=== PATIENT | male | born 1960 | race Caucasian/White ===

== ENCOUNTER 2017-01-02 21:07 | Inpatient (IN) | payer OTHER ==
[~2017-01-02] VITALS: Ht 172.7 cm; Wt 73.9 kg
--- NOTE | 2017-01-02 22:33 | ERA ---
ER Documentation Chief Complaint Date/Time DATE: 01/02/17 TIME: 22:33 Chief Complaint diffuse abd pain x 1 day, w/ vomiting HPI The patient is a 56-year-old male, presenting to the ER because of diffuse abdominal pain, associated with vomiting 2 initially foot then mucus and constipation. The pain is 9/10, worse with vomiting and constipation. He denies fever, chills, neck pain, dysuria, diarrhea. He does not smoke, drinks socially Past medical/surgical history: None ROS All systems reviewed and are negative except as per history of present illness. Medications Home Meds No Active Prescriptions or Reported Meds Allergies Allergies: Coded Allergies: Sulfa (Sulfonamide Antibiotics) (Verified Allergy, Unknown, 01/02/17) Physical Exam Vitals Vital Signs Date Time Temp Pulse Resp B/P Pulse Ox O2 Delivery O2 Flow Rate FiO2 01/02/17 21:15 98.3 90 20 117/77 100 Physical Exam Const: No acute distress. Head: Atraumatic. Eyes: Normal Conjunctiva. ENT: Normal External Ears, Nose and Mouth. Neck: Full range of motion. No meningismus. Resp: Clear to auscultation bilaterally. Cardio: Regular rate and rhythm, no murmurs. Abd: Soft, non distended, normal bowel sounds, diffuse abdominal tenderness, no rigidity, rebound, CVA tenderness Skin: No petechiae or rashes. Back: No midline or flank tenderness. Ext: No cyanosis, or edema. Neur: Awake and alert. No focal deficit Psych: Normal Mood and Affect. Result Diagram: 01/02/178 01/02/178 Results 24 hrs Laboratory Tests Test 01/02/17 22:48 01/02/17 23:01 Alanine Aminotransferase (ALT/SGPT) 39IU/L Albumin 4.7g/dl Albumin/Globulin Ratio 1.30 Alkaline Phosphatase 103IU/L Anion Gap 17 Aspartate Amino Transf (AST/SGOT) 23IU/L Basophils # 0.010^3/ul Basophils % 0.3% Blood Urea Nitrogen 17mg/dl Calcium Level 10.4mg/dl Carbon Dioxide Level 30mmol/L Chloride Level 98mmol/L Creatinine 0.85mg/dl Direct Bilirubin 0.00mg/dl Eosinophils # 0.110^3/ul Eosinophils % 0.6% Globulin 3.60g/dl Glucose Level 127mg/dl Hematocrit 46.5% Hemoglobin 15.6g/dl Indirect Bilirubin 0.9mg/dl Lipase 81U/L Lymphocytes # 1.410^3/ul Lymphocytes % 11.7% Mean Corpuscular Hemoglobin 30.3pg Mean Corpuscular Hemoglobin Concent 33.5g/dl Mean Corpuscular Volume 90.3fl Mean Platelet Volume 10.6fl Monocytes # 0.710^3/ul Monocytes % 5.8% Neutrophils # 9.510^3/ul Neutrophils % 81.3% Nucleated Red Blood Cells # 0.010^3/ul Nucleated Red Blood Cells % 0.0/100WBC Platelet Count 99124^3/UL Potassium Level 4.4mmol/L Red Blood Count 5.1510^6/ul Red Cell Distribution Width 12.1% Sodium Level 141mmol/L Total Bilirubin 0.9mg/dl Total Protein 8.3g/dl White Blood Count 11.610^3/ul Bedside Urine Blood Trace-lysed Bedside Urine Glucose (UA) Negative Bedside Urine Ketones (LAB) Trace Bedside Urine Leukocyte Esterase (L Negative Bedside Urine Nitrite (LAB) Negative Bedside Urine Protein (LAB) 1+ Bedside Urine pH (LAB) 5.5 Current Medications Medications (Trade) Dose Ordered Sig/[place] Route PRN Reason Start Time Stop Time Status Last Admin Dose Admin Sodium Chloride (NS) 1,000 ml @ 1,000 mls/hr Q1H STAT IV 01/02/17 22:38 01/02/17 23:37 DC 01/02/17 23:05 Morphine Sulfate (morphine) 4 mg ONCE STAT IV 01/02/17 22:38 01/02/17 22:40 DC 01/02/17 23:05 Ondansetron HCl 4 mg 4 mg ONCE STAT IV 01/02/17 22:38 01/02/17 22:40 DC 01/02/17 23:05 Piperacillin Sod/ Tazobactam Sod (Zosyn 3.375gm/ 100 ml (Pmx)) 100 ml @ 200 mls/hr ONCE ONCE IVPB 01/03/17 00:30 01/03/17 00:59 Procedures/MDM [place] [id number] Radiology Main Line: [phone] DIAGNOSTIC IMAGING REPORT Patient: JOIE TATUM : 1960 Age: 56 Sex: M MR #: [id number] [facility] #: [id number] DOS: 01/02/17 2238 Ordering MD: NIRALI LEES MD Location: E/R Room/Bed: PROCEDURE: CT abdomen and pelvis without contrast. CLINICAL INDICATION: Abdominal pain TECHNIQUE: CT scan of the abdomen and pelvis without contrast was performed. Sagittal and coronal reformatted images were obtained from the axial source images. CTDI = 9.43 mGy; DLP = 594.16 mGy-cm COMPARISON: None. FINDINGS: Visualized lower thorax: Minimal left lower lobe subsegmental atelectasis or scarring with small pleural thickening. The right lung base is clear. There is no evidence for pleural effusion. Liver, gallbladder, pancreas and spleen: The liver is normal and size, contour and attenuation. There is no evidence for a liver mass or ductal dilatation. The gallbladder is unremarkable. No common bile duct abnormality is demonstrated. The pancreas is unremarkable. The spleen is normal in size. Adrenal glands and genitourinary system: The adrenal glands are normal bilaterally. The right kidney is normal in size and contour. The left kidney has an approximate 4 mm nonobstructing interpolar calculus without hydronephrosis. Multiple left renal cysts, cortical and parapelvic are present the largest is in the upper pole measuring 4.3 cm. The ureters are unremarkable. No urinary bladder abnormality is demonstrated. The prostate gland is normal in size. The scrotum shows no abnormality. Gastrointestinal system: The stomach is distended without wall thickening. There is distension with gas/fluid levels of the duodenum and jejunum with small bowel fecal material in the jejunum and some haziness of the small bowel mesenteric fat. The ileum is collapsed, the small bowel obstruction pattern possibly related to an internal hernia as there is no evidence of previous abdominal surgery. The appendix and surrounding fat are within the limits of normal. The colon shows no evidence for wall thickening or acute abnormality. There is no evidence for colitis or diverticulitis. Peritoneum, retroperitoneum, lymph nodes and vessels: The abdominal aorta is normal in caliber. There is no evidence for atherosclerotic calcification. The inferior vena cava is unremarkable. There is no evidence for adenopathy or mass. A small amount of free fluid within the dependent pelvis is present. There is no upper abdominal ascites or pneumoperitoneum. Osseous structures and musculoskeletal findings: There is no fracture, lytic or blastic lesion. No muscular abnormality or soft tissue pathology is present. RPTAT:HJJR IMPRESSION: 1. Mid small bowel obstruction pattern with gastric, duodenal and jejunal distension and collapse of the ileum, findings consistent with small bowel obstruction due to an internal hernia as there are no changes of prior abdominal surgery. 2. Small amount of free fluid within the pelvis. 3. Incidental left renal calculus and left renal cysts. 4. Critical results regarding the small bowel obstruction are discussed by telephone with emergency room physician Dr. Lees at 12:19. Noah Tse Physician Date Time Electronically viewed and signed by Noah Tse Physician on 01/03/2017 00:20 JR/ CC: NIRALI LEES MD MEDICAL MAKING DECISION: The patient is a 56-year-old male, presenting with acute small bowel obstruction. he was treated with 2 L normal saline, morphine 4 mg IV for pain, Zofran 4 mg IV for nausea, nasogastric tube, Zosyn IV with good response.. The differential diagnoses considered include but are not limited to mesenteric hernia, cholelithiasis, cholecystitis, cystitis, pancreatitis, hepatitis, gastritis, peptic ulcer disease, gastric ulcer, appendicitis, diverticulitis, cholangitis, choledocholithiasis, partial small bowel obstruction, GI malignancy. Departure Diagnosis: Primary Impression: Abdominal pain Condition: Stable Comments Consultation: I discussed the patient with the on-call general surgeon Dr. Valle , who was made aware of the lab, the treatment, the patient condition. He accepted the consult at 12:35 AM I discussed the findings with the patient. I discussed the patient with the on- call hospitalist Dr. Vasquez who was made aware of the lab, the treatment, the patient condition and my discussion with Dr. Valle. The patient is admitted to medical surgery bed at 12:45 AM NIRALI LEES MD Jan 02, 2017 22:33
[2017-01-02] MEDS ORDERED: SOD CHLORIDE 0.9% 1,000 ML IV STA (22:38)
[2017-01-02] MEDS ORDERED: morphine 4 MG/ML VIAL IV STA (22:38)
[2017-01-02] MEDS ORDERED: ONDANSETRON 4 MG INJ IV STA (22:38)
[2017-01-02 22:57] LABS: ADD SCAN DIFF NO
[2017-01-02 22:58] LABS: BASOPHILS % 0.3 % (0.0-2.0); EOSINOPHILS # 0.1 10^3/ul (0.0-0.5); EOSINOPHILS % 0.6 % (0.0-7.0); HEMATOCRIT 46.5 % (42.0-52.0); HEMOGLOBIN 15.6 g/dl (14.0-18.0); LYMPHOCYTES # 1.4 10^3/ul (0.8-2.9); LYMPHOCYTES % 11.7 % (15.0-51.0); MEAN CORPUSCULAR HEMOGLOBIN 30.3 pg (29.0-33.0); MEAN CORPUSCULAR HGB CONC 33.5 g/dl (32.0-37.0); MEAN CORPUSCULAR VOLUME 90.3 fl (82.0-101.0); MEAN PLATELET VOLUME 10.6 fl (7.4-10.4); MONOCYTE # 0.7 10^3/ul (0.3-0.9); MONOCYTES % 5.8 % (0.0-11.0); NEUTROPHIL # 9.5 10^3/ul (1.6-7.5); NEUTROPHILS % 81.3 % (39.0-77.0); PLATELET COUNT 252 10^3/UL (140-415); RED BLOOD COUNT 5.15 10^6/ul (4.70-6.10); RED CELL DISTRIBUTION WIDTH 12.1 % (11.5-14.5); WHITE BLOOD COUNT 11.6 10^3/ul (4.8-10.8)
[2017-01-02 22:59] LABS: URINE BLOOD (Dip) POC Trace-lysed (NEGATIVE)
[2017-01-02 23:19] LABS: ALBUMIN 4.7 g/dl (3.3-4.9); POTASSIUM 4.4 mmol/L (3.5-5.1)
[2017-01-02 23:21] LABS: BILIRUBIN,INDIRECT 0.9 mg/dl (0-1.1); BILIRUBIN,TOTAL 0.9 mg/dl (0.2-1.3); CREATININE 0.85 mg/dl (0.61-1.24)
[2017-01-02 23:22] LABS: ALBUMIN/GLOBULIN RATIO 1.3; CALCIUM 10.4 mg/dl (8.4-10.2); TOTAL PROTEIN 8.3 g/dl (6.1-8.1)
--- NOTE | 2017-01-03 00:20 | RADRPT ---
PROCEDURE: CT abdomen and pelvis without contrast. CLINICAL INDICATION: Abdominal pain TECHNIQUE: CT scan of the abdomen and pelvis without contrast was performed. Sagittal and coronal reformatted images were obtained from the axial source images. CTDI = 9.43 mGy; DLP = 594.16 mGy-cm COMPARISON: None. FINDINGS: Visualized lower thorax: Minimal left lower lobe subsegmental atelectasis or scarring with small pl eural thickening. The right lung base is clear. There is no evidence for pleural effusion. Liver, gallbladder, pancreas and spleen: The liver is normal and size, contour and attenuation. Th ere is no evidence for a liver mass or ductal dilatation. The gallbladder is unremarkable. No comm on bile duct abnormality is demonstrated. The pancreas is unremarkable. The spleen is normal in si ze. Adrenal glands and genitourinary system: The adrenal glands are normal bilaterally. The right kidne y is normal in size and contour. The left kidney has an approximate 4 mm nonobstructing interpolar calculus without hydronephrosis. Multiple left renal cysts, cortical and parapelvic are present the largest is in the upper pole measuring 4.3 cm. The ureters are unremarkable. No urinary bladder a bnormality is demonstrated. The prostate gland is normal in size. The scrotum shows no abnormality . Gastrointestinal system: The stomach is distended without wall thickening. There is distension wit h gas/fluid levels of the duodenum and jejunum with small bowel fecal material in the jejunum and so me haziness of the small bowel mesenteric fat. The ileum is collapsed, the small bowel obstruction pattern possibly related to an internal hernia as there is no evidence of previous abdominal surgery . The appendix and surrounding fat are within the limits of normal. The colon shows no evidence fo r wall thickening or acute abnormality. There is no evidence for colitis or diverticulitis. Peritoneum, retroperitoneum, lymph nodes and vessels: The abdominal aorta is normal in caliber. The re is no evidence for atherosclerotic calcification. The inferior vena cava is unremarkable. There is no evidence for adenopathy or mass. A small amount of free fluid within the dependent pelvis is present. There is no upper abdominal ascites or pneumoperitoneum. Osseous structures and musculoskeletal findings: There is no fracture, lytic or blastic lesion. No muscular abnormality or soft tissue pathology is present. RPTAT:HJJR IMPRESSION: 1. Mid small bowel obstruction pattern with gastric, duodenal and jejunal distension and collapse o f the ileum, findings consistent with small bowel obstruction due to an internal hernia as there are no changes of prior abdominal surgery. 2. Small amount of free fluid within the pelvis. 3. Incidental left renal calculus and left renal cysts. 4. Critical results regarding the small bowel obstruction are discussed by telephone with emergency room physician Dr. Nazario at 12:19. Physician Rhoda Date Time Electronically viewed and signed by Noah Tse Physician on 01/03/2017 00:20 JR/
[2017-01-03] MEDS ORDERED: PIPER-TAZO 3.375 GM IV (PMX) 100 ML IVPB ONE (00:30)
[2017-01-03] MEDS ORDERED: SOD CHLORIDE 0.9% 1,000 ML IV ONE (01:00)
[2017-01-03 01:32] VITALS: TEMP 98
[2017-01-03 03:11] VITALS: BP 135/72; RESP 20
[2017-01-03] MEDS ORDERED: ONDANSETRON 4 MG INJ IV PRN (03:30)
[2017-01-03] MEDS ORDERED: morphine 4 MG/ML VIAL IV PRN (03:30)
[2017-01-03] MEDS: DEXTROSE 5%-0.45% NACL 1,000 ML IV SCH ×3 (03:45→20:13)
[2017-01-03 03:56] VITALS: Ht 172.7 cm; Wt 73.9 kg
[2017-01-03 05:00] VITALS: BP 122/71; PULSE 88; RESP 18
[2017-01-03 05:26] LABS: ADD SCAN DIFF NO
[2017-01-03 05:49] LABS: BASOPHILS % 0.3 % (0.0-2.0); EOSINOPHILS # 0.1 10^3/ul (0.0-0.5); EOSINOPHILS % 0.9 % (0.0-7.0); HEMATOCRIT 40.5 % (42.0-52.0); HEMOGLOBIN 13.6 g/dl (14.0-18.0); LYMPHOCYTES % 9.8 % (15.0-51.0); MEAN CORPUSCULAR HEMOGLOBIN 30.5 pg (29.0-33.0); MEAN CORPUSCULAR HGB CONC 33.6 g/dl (32.0-37.0); MEAN CORPUSCULAR VOLUME 90.8 fl (82.0-101.0); MONOCYTE # 0.9 10^3/ul (0.3-0.9); MONOCYTES % 8.1 % (0.0-11.0); NEUTROPHIL # 8.5 10^3/ul (1.6-7.5); NEUTROPHILS % 80.7 % (39.0-77.0); PLATELET COUNT 213 10^3/UL (140-415); RED BLOOD COUNT 4.46 10^6/ul (4.70-6.10); RED CELL DISTRIBUTION WIDTH 12.3 % (11.5-14.5); WHITE BLOOD COUNT 10.6 10^3/ul (4.8-10.8)
--- NOTE | 2017-01-03 05:58 | CONS ---
DATE OF ADMISSION: 01/03/2017 DATE OF CONSULTATION: 01/03/2017 SURGICAL CONSULTATION REASON FOR CONSULTATION: Abdominal pain. HISTORY OF PRESENT ILLNESS: The patient is an otherwise healthy 56-year-old male who presented to the emergency room complaining of a 1-day history of generalized severe abdominal pain. This has been associated with multiple episodes of nonbloody vomiting. He reports his last bowel movement to be this morning and normal. He has not been passing any flatus since the onset of his symptoms. On arrival to the emergency room, the patient was found to be afebrile and hemodynamically stable. A CT scan of the abdomen and pelvis showed findings consistent with a proximal small bowel obstruction. He has since had a nasogastric tube placed with approximately 400 mL of bilious output. He states that he feels much better since insertion of the nasogastric tube and denies any abdominal pain at this time. He denies any history of prior abdominal surgeries. PAST MEDICAL HISTORY: Otherwise negative. PAST SURGICAL HISTORY: Negative. MEDICATIONS: Please refer to medication reconciliation. ALLERGIES: SULFA CAUSES A RASH. SOCIAL HISTORY: The patient does not smoke. He drinks socially and does not do any illicit drugs. REVIEW OF SYSTEMS: A 14-point review of systems was conducted and was negative except for that which was mentioned in the HPI. PHYSICAL EXAMINATION: VITAL SIGNS: Temperature is 98.0, pulse is 90, respirations 16, blood pressure 124/79, O2 saturation is 96% on room air. GENERAL APPEARANCE: He is a well-developed, well-nourished gentleman who is awake, alert, and oriented x3 and in no acute distress at this time. HEENT: There is a nasogastric tube in place with approximately 400 mL of bilious output. NECK: Supple without JVD. CARDIOVASCULAR: S1, S2, regular rate and rhythm. No murmurs appreciated. RESPIRATORY: Clear to auscultation bilaterally. ABDOMEN: Soft. There is mild distention. There is minimal periumbilical and right upper quadrant tenderness to deep palpation without any rebound, guarding , or other evidence of peritonitis. There is a very tiny umbilical hernia palpated which is reducible. EXTREMITIES: Do not exhibit any signs of cyanosis, edema, or clubbing. Groins , there are no inguinal hernias palpated bilaterally. LABORATORY WORK: Shows a white blood cell count of 11.6, hemoglobin of 15.6, platelet count 252. There is neutrophilia of 81.3%. Sodium is 141, potassium 4.4, chloride 98, bicarbonate 30, BUN 17, creatinine 0.85, glucose 127. LFTs are normal. Lipase is 81. IMAGING STUDIES: A CT scan of the abdomen and pelvis shows distended stomach and distention and gas fluid levels of the duodenum and jejunum with small bowel fecal material in the jejunum and some haziness of the small bowel mesenteric fat. The ileum is collapsed, and according to the radiologist, small bowel obstruction pattern may possibly be related to an internal hernia. RECOMMENDATIONS: This is a 56-year-old gentleman with a de vince small bowel obstruction. The differential diagnoses could include congenital adhesions, internal hernia, malrotation, volvulus, mass, etc. The patient does not seem to have any evidence of bowel compromise at this time. His clinical symptoms have improved with the insertion of the nasogastric tube. I would continue bowel rest, IV fluid hydration, and nasogastric tube to low continuous wall suction. Ultimately, given the findings of CT scan and a de vince small bowel obstruction without any evidence of prior surgery, I would recommend surgical intervention in the form of exploratory laparotomy and treatment as necessary. I had an extensive discussion with the patient and his regarding all risks and benefits of both operative and nonoperative intervention. I explained the possible need for lysis of adhesions versus bowel resection versus possible ostomy, etc. I also explained the possibility of a negative laparotomy. I discussed the risks of nonoperative intervention which would include bowel ischemia, strangulation, sepsis, and resulting . The patient and his fully understand all of the above. They have elected to refuse surgical intervention at this time. Again, I stressed the risks of this to them. In the meantime, I will order a small bowel follow through, and we will follow up the patient's labs in the a.m. A total of over 60 minutes was spent in review of the patient's chart, imaging studies, and [id number] evaluation and discussion with the patient and his . Further recommendations will be made based on the patient's clinical course. Dictated By: NIRALI OLGUIN/CYNDY Conf#: [id number] DID#: [id number] FRAN
[2017-01-03 06:12] LABS: ALBUMIN 3.7 g/dl (3.3-4.9); POTASSIUM 4.1 mmol/L (3.5-5.1)
[2017-01-03 06:14] LABS: CREATININE 0.71 mg/dl (0.61-1.24)
[2017-01-03 06:15] LABS: ALBUMIN/GLOBULIN RATIO 1.37; BILIRUBIN,INDIRECT 0.9 mg/dl (0-1.1); BILIRUBIN,TOTAL 0.9 mg/dl (0.2-1.3); CALCIUM 8.8 mg/dl (8.4-10.2); PHOSPHORUS 3.7 mg/dl (2.5-4.9); TOTAL PROTEIN 6.4 g/dl (6.1-8.1)
[2017-01-03 06:16] LABS: MAGNESIUM 1.8 mg/dl (1.7-2.5)
[2017-01-03 08:42] LABS: INR 1.03; PROTIME 13.5 Sec (12.2-14.2); PT RATIO 1.1
[2017-01-03] MEDS ORDERED: DIATR MEGLU/DIATRIZOATE SODIUM 120 ML BTL ONE ×2 (08:49→08:50)
--- NOTE | 2017-01-03 12:28 | HP ---
Date/Time of Note Date/Time of Note DATE: 01/03/17 TIME: 12:26 Assessment/Plan VTE Prophylaxis VTE Prophylaxis Intervention: SCD's Lines/Catheters IV Catheter Type (from Nrsg): Peripheral IV Assessment/Plan Assessment/Plan IMPRESSION 1. Small Bowel Obstruction 2. abd pain 2/2 above 3. Mild Leukocytosis, likely stress induced PLAN NPO NGT to low intermittent suction IVF Pain meds and anti-emetics as needed f/u surgery recommendation . HPI/ROS Admit Date/Time Admit Date/Time Jan 03, 2017 at 00:41 Hx of Present Illness This is a 56 yo male with n significant medical hx presented with acute onset diffuse abd pain of 1 day duration. In ER, CT scan showed small bowel obstruction. He denied hx of abdominal/pelvic surgery. He has already been seen by Dr. Valle, Surgeon. currently NGT is in place with suction PMH/Family/Social Past Medical History Medical History: no pertinent history Past Surgical History Past Surgical Hx: no surgical history Social History Alcohol Use: none Smoking Status: Never smoker Drug Use: none Exam/Review of Systems Vital Signs Vitals Vital Signs Date Time Temp Pulse Resp B/P Pulse Ox O2 Delivery O2 Flow Rate FiO2 01/03/17 05:00 98.0 88 18 122/71 99 Room Air Intake and Output 01/02/17 01/02/17 01/03/17 15:00 23:00 07:00 Intake Total 500 ml Output Total 550 ml Balance -50 ml Exam Constitutional: alert, oriented, well developed Head: atraumatic, normocephalic Eyes: EOMI, PERRL ENMT: other (NG tube in place) Neck: non-tender, supple Respiratory: clear to auscultation, normal air movement Cardiovascular: nl pulses, regular rate and rhythm Gastrointestinal: other (mildly distended and slightly tender to palpation) Extremities: normal pulses Labs Result Diagram: 01/03/17 0500 01/03/17 0500 Medications Medications Current Medications Dextrose/Sodium Chloride (D5-1/2ns) 1,000 ml @ 125 mls/hr Q8H IV Last administered on 01/03/17 03:45; Admin Dose 125 MLS/HR; Start 01/03/17 at 03:00 Morphine Sulfate (morphine) 3 mg Q4H PRN IV PAIN Last administered on 01/03/17 03:45; Admin Dose 3 MG; Start 01/03/17 at 03:30 Ondansetron HCl (Zofran Inj) 4 mg Q6H PRN IV NAUSEA AND/OR VOMITING; Start 01/03 at 03:30 ROSANNA PARKER MD Jan 03, 2017 12:27
--- NOTE | 2017-01-03 14:37 | RADRPT ---
PROCEDURE: Small bowel follow-through. CLINICAL INDICATION: Abdomen pain. TECHNIQUE: Water-soluble contrast was administered orally and several spot and overhead radiograph s of the abdomen were obtained. COMPARISON: None. FINDINGS: On the preliminary radiograph, there is a dilated loop of small bowel in the upper abdomen measuring 4.9 cm in diameter. The preliminary radiograph is otherwise unremarkable with gas present in the c olon. There is no small bowel displacement or mass. The small bowel folds are normal. There is no evidence of obstruction. Transit time is normal with contrast feeding tube. The colon at 1 hour and contrast throughout the colon down to the rectosigmoid at 2 hours. There is no evidence of obstruction. IMPRESSION: 1. Dilated small bowel in the upper abdomen. However, no evidence of obstruction. RPTAT: QQ .Loyd Gagnon MD, Date Time Electronically viewed and signed by .Loyd Gagnon MD, on 01/03/2017 14:37 .R/
--- NOTE | 2017-01-03 18:14 | PN ---
Date/Time of Note Date/Time of Note DATE: 01/03/17 TIME: 18:11 Assessment/Plan Lines/Catheters IV [facility] (from [facility] Peripheral IV Assessment/Plan Assessment/Plan 56-year-old gentleman with a de vince small bowel obstruction of unknown etiology * Small bowel follow-through without any evidence of obstruction. Normal transit time. No evidence of masses. * DC NG tube * Advanced to clear liquids. Advance diet as tolerated. * DC home once tolerating diet * If symptoms recur would again recommend surgical intervention Above was discussed with the patient and the nurse at the bedside. I ensured that all the patient's questions were answered. Subjective 24 Hr Interval Summary Feels much better. Denies abdominal pain. Passing bowel movements. Afebrile Exam/Review of Systems Vital Signs Vitals Vital Signs Date Time Temp Pulse Resp B/P Pulse Ox O2 Delivery O2 Flow Rate FiO2 01/03/17 05:00 98.0 88 18 122/71 99 Room Air Intake and Output 01/02/17 01/02/17 01/03/17 15:00 23:00 07:00 Intake Total 500 ml Output Total 550 ml Balance -50 ml Exam Free Text/Dictation GENERAL APPEARANCE: He is a well-developed, well-nourished gentleman who is awake, alert, and oriented x3 and in no acute distress at this time. CARDIOVASCULAR: S1, S2, regular rate and rhythm. No murmurs appreciated. RESPIRATORY: Clear to auscultation bilaterally. ABDOMEN: Soft, bowel sounds present, nondistended, nontender to palpation. There is a very tiny umbilical hernia palpated which is reducible. EXTREMITIES: Do not exhibit any signs of cyanosis, edema, or clubbing. Groins , there are no inguinal hernias palpated bilaterally. Results Result Diagram: 01/03/17 0500 01/03/17 0500 NIRALI FARFAN MD Jan 03, 2017 18:14
[2017-01-03 19:00] VITALS: BP 110/73; RESP 20
[2017-01-04] MEDS: DEXTROSE 5%-0.45% NACL 1,000 ML IV SCH ×2 (01:34→10:40)
[2017-01-04 08:14] VITALS: BP 140/61; RESP 18
[2017-01-04 12:00] VITALS: BP 132/74; PULSE 74; RESP 17
[2017-01-04] MEDS ORDERED: TRAM50TA2 PO (14:44)
--- NOTE | 2017-01-04 14:46 | PDOCDIS ---
Discharge Instructions DIAGNOSIS Discharge Diagnosis: 1. Small bowel obstruction CONDITION Patient Condition: Stable HOME CARE INSTRUCTIONS: Diet Instructions: Low Fat /Cholesterol ACTIVITY: Activity Restrictions: No Restrictions Bathing Restrictions: Shower FOLLOW UP/APPOINTMENTS Appointments 1. Follow-up with your primary care provider within a week 2. Follow up with Dr. Antonio Gomez in 2 weeks EVERTON GARCIA Jan 04, 2017 14:46
--- NOTE | 2017-01-04 16:03 | PN ---
Date/Time of Note Date/Time of Note DATE: 01/04/17 TIME: 16:00 Assessment/Plan VTE Prophylaxis VTE Prophylaxis Intervention: SCD's Lines/Catheters IV Catheter Type (from Nrsg): Peripheral IV Assessment/Plan Chief Complaint/Hosp Course Assessment and plan 1. Small bowel obstruction suspect secondary to internal hernia. Surgeon following. Patient offered option NG tube discontinued at this time. Advance diet as tolerated. May need surgical intervention should bowel obstruction persist 2. Leukocytosis. Improved. Likely secondary to #1. Disposition plan: Advance as tolerated. Still noted with diarrhea. Will provide discharge planning once able to tolerate regular diet Discussed plan of care with Dr. Allan Problems: Subjective 24 Hr Interval Summary Free Text/Dictation Only minimal reports of abdominal pain at this time. No other specific complaints. Denies any nausea vomiting. Does report being able to have bowel movement Exam/Review of Systems Vital Signs Vitals Vital Signs Date Time Temp Pulse Resp B/P Pulse Ox O2 Delivery O2 Flow Rate FiO2 01/04/17 08:14 98.4 73 18 140/61 98 01/03/17 05:00 Room Air Intake and Output 01/03/17 01/03/17 01/04/17 15:00 23:00 07:00 Intake Total 500 ml 620 ml Output Total 700 ml 1200 ml Balance -200 ml -580 ml Exam General: [No acute signs or symptoms of distress] Eyes: [pupils equal round, Anicteric sclera] Neck: Supple nontender, no JVD Cardiac: [S1, S2 auscultated, regular rhythm and rate] Pulmonary: [No coarse rhonchi or breathing auscultated] GI: Minimally tender upon palpation on lower abdominal quadrant Extremities: [No edema bilateral lower extremities] Skin: [Clean dry and intact] Neurologic: [Alert to person place and time and situation] Results Result Diagram: 01/03/17 0500 01/03/17 0500 Medications Medications Current Medications Dextrose/Sodium Chloride (D5-1/2ns) 1,000 ml @ 50 mls/hr Q20H IV Last administered on 01/04/17 10:40; Admin Dose 50 MLS/HR; Start 01/03/17 at 03:00 Morphine Sulfate (morphine) 3 mg Q4H PRN IV PAIN Last administered on 01/03/17 03:45; Admin Dose 3 MG; Start 01/03/17 at 03:30 Ondansetron HCl (Zofran Inj) 4 mg Q6H PRN IV NAUSEA AND/OR VOMITING; Start 01/03 at 03:30 EVERTON GARCIA Jan 04, 2017 16:02
--- NOTE | 2017-01-04 18:49 | PN ---
Date/Time of Note Date/Time of Note DATE: 01/04/17 TIME: 18:47 Assessment/Plan Lines/Catheters IV Catheter Type (from [facility]): Peripheral IV Assessment/Plan Assessment/Plan 56-year-old gentleman with a de vince small bowel obstruction of unknown etiology * Small bowel follow-through without any evidence of obstruction. Normal transit time. No evidence of masses. * Tolerating regular diet * Surgically stable for DC home * If symptoms recur would again recommend surgical intervention Above was discussed with the patient and the nurse at the bedside. I ensured that all the patient's questions were answered. Subjective 24 Hr Interval Summary Had some minimal mild lower abdominal pain earlier which has resolved. Tolerating regular diet. Having loose BMs. Afebrile. Exam/Review of Systems Vital Signs Vitals Vital Signs Date Time Temp Pulse Resp B/P Pulse Ox O2 Delivery O2 Flow Rate FiO2 01/04/17 12:00 98.0 74 17 132/74 98 Room Air Intake and Output 01/03/17 01/03/17 01/04/17 15:00 23:00 07:00 Intake Total 500 ml 620 ml Output Total 700 ml 1200 ml Balance -200 ml -580 ml Exam Free Text/Dictation GENERAL APPEARANCE: He is a well-developed, well-nourished gentleman who is awake, alert, and oriented x3 and in no acute distress at this time. CARDIOVASCULAR: S1, S2, regular rate and rhythm. No murmurs appreciated. RESPIRATORY: Clear to auscultation bilaterally. ABDOMEN: Soft, bowel sounds present, nondistended, nontender to palpation. There is a very tiny umbilical hernia palpated which is reducible. EXTREMITIES: Do not exhibit any signs of cyanosis, edema, or clubbing. Groins , there are no inguinal hernias palpated bilaterally. Results Result Diagram: 01/03/17 0500 01/03/17 0500 NIRALI FARFAN MD Jan 04, 2017 18:49
[2017-01-04 19:00] VITALS: BP 124/58; RESP 18
[2017-01-05 05:36] VITALS: BP 113/63; PULSE 69; RESP 16
[2017-01-05] MEDS: DEXTROSE 5%-0.45% NACL 1,000 ML IV SCH (06:09)
[2017-01-05 07:40] VITALS: BP 109/69; RESP 16
--- NOTE | 2017-01-05 13:41 | DS ---
Date/Time of Note Date/Time of Note DATE: 01/05/17 TIME: 13:36 Discharge Summary Admission/Discharge Info Admit Date/Time Jan 03, 2017 at 00:41 Discharge Date/Time Final Diagnosis 1. Small bowel obstruction suspect secondary to internal hernia 2. Leukocytosis Hospital Course This is a 56-year-old male with no past medical history of came to [facility] due to reports of acute diffuse abdominal pain for 1 day duration. Patient did have CT scan that did show small bowel obstruction possibly from internal hernia. Patient was seen by general surgeon. He was offered possibility of surgical intervention for this internal hernia. During his admission patient deferred from surgery and we did get small bowel follow- through instead which did show dilated small bowel in the upper abdomen but no evidence of obstruction. He initially had NG tube placed and he came to the hospital for decompression. He did tolerate this procedure well. During his course of stay did improve. Patient was able to have NG tube discontinued and we were able to advance his diet as tolerated. During his course of stay did improve. He was instructed to follow-up with his primary care provider within a week. The plan of care was discussed with the patient and patient did verbalize his understanding. On the day of discharge patient was in stable condition Discussed plan of care with Dr. Allan Discharge process time is 40 minutes Disposition: Home Home Meds Active Scripts Tramadol HCl (Tramadol HCl) 50 Mg Tablet, 50 MG PO Q6H Y for PAIN, #20 TAB Prov:EVERTON GARCIA 01/04/17 Follow-up Plan CONDITION Patient Condition: Stable HOME CARE INSTRUCTIONS: Diet Instructions: Low Fat /Cholesterol ACTIVITY: Activity Restrictions: No Restrictions Bathing Restrictions: Shower FOLLOW UP/APPOINTMENTS Appointments 1. Follow-up with your primary care provider within a week 2. Follow up with Dr. Antonio Gomez in 2 weeks EVERTON GARCIA Jan 05, 2017 13:40
== END 2017-01-05 13:25 | disposition home or self-care (01) | DRG 395 ==
LOC: E/R 21:07 → MS1 01-03 00:41
PROVIDERS: ADMIT Internal Medicine; ATTEND Internal Medicine
DX: K45.0 Other specified abdominal hernia with obstruction, without gangrene (principal)
CPT/HCPCS: 36415; 74176; 74250; 80053; 81003; 83605; 83690; 83735; 84100; 85025; 85610; 96374; 96375; J2270; J2405; J2543; J7030; J7042

== ENCOUNTER 2017-01-10 16:00 | Outpatient (CLI) | payer OTHER ==
[~2017-01-10] VITALS: Ht 176.5 cm; Wt 74.1 kg
[2017-01-10 15:52] VITALS: BP 116/64; PULSE 85; RESP 18; Ht 176.5 cm; Wt 74.1 kg
[~2017-01-10 16:00] MED LIST: TRAM50TA2 PO
--- NOTE | 2017-01-10 16:08 | PN ---
Date/Time of Note Date/Time of Note DATE: 01/10/17 TIME: 16:03 Outpatient Progress Note Chief Complaint Abdominal pain/leukocytosis/small bowel obstruction HPI Abdominal pain/patient has abdominal pain, patient was recently hospitalized, patient feeling much better, Leukocytosis/no fever or chills, no diaphoresis, Small bowel obstruction/patient had small bowel obstruction patient was recently hospitalized while feeling much better, Review of Systems Const: [No Fever, no chills, no Wt. loss, no Fatigue, normal appetite, no diaphoresis.] Eyes: [No pain, no discharge, no redness, no visual change, no foreign body.] ENT: [No pain, no bleeding, no congestion, no sore throat, no dysphagia, no discharge or rhinitis.] Lymph: [No adenopathy, no tender nodes, no lymphedema.] Resp: [No SOB, no cough, no sputum, no wheezing, no chest pain.] CV: [No chest pain, no palpitaions, no LUEVANO, no PND, no edema.] GI: [Normal appetite, minimal abdominal pain, no nausea, no vomiting, no diarrhea, no blood, no constipation.] : [No frequency, no urgency, no dysuria, no hematuria, no flank pain, no discharge, no bleeding.] Musc: [No bone/joint pain, no back pain, no neck pain, no knee pain, no restricted ROM.] Skin: [No rash, no skin lesions, no erythema, no laceration, no bruising, no pruritus.] Neuro: [No LAST, no dizziness, no syncope, no seizure, no focal-weakness.] Endo: [No polyuria, no polydypsia, no dry-skin, no temp-intolerance.] Psych: [No hallucinations, no depression, no anxiety, no suicidal ideation.] Ext: [No edema, no pain, no ulcer, no weakness.] Physical Exam General Appearance: A [56] year-old [male] [who appears well-developed, well- nourished, in no acute distress.] HEENT: [Head normocephalic, atraumatic. Pupils equal, round, reactive to light and accommodate. Sclerae are no jaundice. Nasal turbinates pink without erythema or nasal discharge. Mucous membranes pink and moist without lesions. Oropharynx clear without any exudate or discharge.] NECK: [Supple. Trachea midline, No thyromegaly, No cervical lymphadenopathy, No mass, No carotid bruits, No JVD, Carotid pulses 2+ bilaterally.] PULMONARY: [Clear to auscultaion bilaterally, No retractions, Chest expansion symmetric bilaterally, no rales, no ronchi, no dulness on percussion.] CARDIAC: [Normal SI and S2, Regular rate and rythm, no murmur, gallop, or rub.] GASTROINTESTINAL: [Abdomen is soft, delete minimal epigastric discomfort, Non Rigid, No distention, Positive bowel sounds x4 quadrants, Liver normal.] SKIN: [Warm, dry, no rash, no bruise, no echmosis.] EXTREMITIES: [Bilateral lower extremities normal, no edema, no phlabitus, pulse palpable, no contracture.] MUSCULOSKELETAL: [Spine Normal, Non-tender, Normal range of motion, No swelling , no deformity, no clubbing, or cyanosis, the patient has no edema to bilateral lower extremities, dorsalis pedis pulses palpable bilaterally.] NEUROLOGIC: [The patient is awake, alert, oriented, responding to yes/no questions appropriately, moving all extremities, cranial nerve intact, normal strenght, normal power, normal coordination, normal gait.] Allergies Coded Allergies: Sulfa (Sulfonamide Antibiotics) (Verified Allergy, Unknown, 01/02/17) PMH None Social Hx No smoking or drinking, Family Hx Noncontributory Assessment/Plan Impression Abdominal pain almost resolved/leukocytosis/small bowel obstruction resolved Plan Patient education done, patient feeling better, patient is very minimal pain, patient anxious to go to work, the patient feels better than patient can return to work no lifting, no pulling or pushing, for a few days, Patient pain continues or if getting worse or any problem to call us or will see him or seen by primary care physician, A CBC CMP as patient has leukocytosis, will monitor closely, discussed with the patient, Medications Home Meds Active Scripts Tramadol HCl (Tramadol HCl) 50 Mg Tablet, 50 MG PO Q6H Y for PAIN, #20 TAB Prov:EVERTON GARCIA 01/04/17 KIRSTEN THOMPSON MD Jan 10, 2017 16:08
== END 2017-01-10 16:38 | disposition home or self-care (01) ==
LOC: DCC 16:00
PROVIDERS: ATTEND Internal Medicine
DX: R10.9 Unspecified abdominal pain (principal); D72.829 Elevated white blood cell count, unspecified

== ENCOUNTER 2017-01-27 11:34 | Outpatient (CLI) | payer OTHER ==
--- NOTE | 2017-01-27 11:51 | PN ---
Date/Time of Note Date/Time of Note DATE: 01/27/17 TIME: 11:46 Outpatient Progress Note Chief Complaint Sinusitis/small bowel obstruction/nasal polyp HPI Sinusitis/patient has a sinus problem, severe congestion, mild cough, no fever chills, no headache or dizziness, Small bowel obstruction/patient had small bowel obstruction, patient was recently hospitalized, no nausea vomiting, abdominal pain, hematemesis melena, no cramps, Nasal polyp patient has a nasal polyp, patient was advised surgery years ago, Review of Systems Const: No Fever, no chills, no Wt. loss, no Fatigue, normal appetite, no diaphoresis. Eyes: No pain, no discharge, no redness, no visual change, no foreign body. ENT: No pain, no bleeding, nasal congestion, minimal sore throat, no dysphagia, no discharge, patient has rhinitis. Lymph: No adenopathy, no tender nodes, no lymphedema. Resp: No SOB, no cough, no sputum, no wheezing, no chest pain. CV: No chest pain, no palpitaions, no LUEVANO, no PND, no edema. GI: Normal appetite, no pain, no nausea, no vomiting, no diarrhea, no blood, no constipation. : No frequency, no urgency, no dysuria, no hematuria, no flank pain, no discharge, no bleeding. Musc: No bone/joint pain, no back pain, no neck pain, no knee pain, no restricted ROM. Skin: No rash, no skin lesions, no erythema, no laceration, no bruising, no pruritus. Neuro: No LAST, no dizziness, no syncope, no seizure, no focal-weakness. Endo: No polyuria, no polydypsia, no dry-skin, no temp-intolerance. Psych: No hallucinations, no depression, no anxiety, no suicidal ideation. Ext: No edema, no pain, no ulcer, no weakness. Physical Exam General Appearance: A 56 year-old male who appears well-developed, well- nourished, in no acute distress. HEENT: Head normocephalic, atraumatic. Pupils equal, round, reactive to light and accommodate. Sclerae are no jaundice. Nasal turbinates pink without erythema or nasal discharge. Mucous membranes pink and moist without lesions. Oropharynx clear without any exudate or discharge. Patient has a nasal congestion,'s patient also has sinus discomfort minimal, NECK: Supple. Trachea midline, No thyromegaly, No cervical lymphadenopathy, No mass, No carotid bruits, No JVD, Carotid pulses 2+ bilaterally. PULMONARY: Clear to auscultaion bilaterally, No retractions, Chest expansion symmetric bilaterally, no rales, no ronchi, no dulness on percussion. CARDIAC: Normal SI and S2, Regular rate and rythm, no murmur, gallop, or rub. GASTROINTESTINAL: Abdomen is soft, non-tender, Non Rigid, No distention, Positive bowel sounds x4 quadrants, Liver normal. SKIN: Warm, dry, no rash, no bruise, no echmosis. EXTREMITIES: Bilateral lower extremities normal, no edema, no phlabitus, pulse palpable, no contracture. MUSCULOSKELETAL: Spine Normal, Non-tender, Normal range of motion, No swelling, no deformity, no clubbing, or cyanosis, the patient has no edema to bilateral lower extremities, dorsalis pedis pulses palpable bilaterally. NEUROLOGIC: The patient is awake, alert, oriented, responding to yes/no questions appropriately, moving all extremities, cranial nerve intact, normal strenght, normal power, normal coordination, normal gait. Allergies Coded Allergies: Sulfa (Sulfonamide Antibiotics) (Verified Allergy, Unknown, 01/02/17) PMH No change Social Hx No change Family Hx No change Assessment/Plan Impression Sinusitis/small bowel obstruction resolved/nasal polyp/rhinitis Plan Patient doing very well, patient does not have any abdominal po pain, patient is able to pass BM, no gas, no nausea or vomiting, Patient encouraged to follow with the primary care physician, Patient has rhinitis, most likely viral, patient will not be given antibiotic, Claritin 10 mg p.o. daily #15 and patient to follow with the primary care physician, Medications Home Meds Active Scripts Tramadol HCl (Tramadol HCl) 50 Mg Tablet, 50 MG PO Q6H Y for PAIN, #20 TAB Prov:EVERTON GARCIA 01/04/17 KIRSTEN THOMPSON MD Jan 27, 2017 11:50
[2017-01-28 17:05] VITALS: BP 121/74; PULSE 89; RESP 18
== END 2017-01-27 16:48 | disposition home or self-care (01) ==
LOC: DCC 11:34
PROVIDERS: ATTEND Internal Medicine
DX: J32.9 Chronic sinusitis, unspecified (principal); K56.60 Unspecified intestinal obstruction; J33.9 Nasal polyp, unspecified; J31.0 Chronic rhinitis